=== PATIENT | female | born 1970 | race Caucasian/White ===

== ENCOUNTER 2017-04-01 07:40 | Emergency (ER) | payer OTHER ==
[~2017-04-01] VITALS: Ht 162.6 cm; Wt 93.0 kg
[2017-04-01 08:07] LABS: URINE BILIRUBIN NEGATIVE (Negative); URINE BLOOD TRACE (Negative); URINE CLARITY SL CLOUDY; URINE COLOR YELLOW; URINE GLUCOSE-RANDOM NEGATIVE (Negative); URINE KETONES NEGATIVE (Negative); URINE NITRITE-REFLEX NEGATIVE (Negative); URINE PROTEIN NEGATIVE (Negative)
[2017-04-01 08:08] LABS: URINE LEUKOCYTES-REFLEX 2+ (Negative)
[2017-04-01 08:10] LABS: CASTS None Seen /LPF (None Seen); SQUAMOUS >10 Many /LPF (0-3); URINE RBC 0-2 Rare /HPF (0-2); URINE WBC-REFLEX 0-5 Rare /HPF (0-5)
[2017-04-01 08:11] LABS: AMORPHOUS URATES Moderate /LPF (None Seen)
[2017-04-01 08:18] LABS: NUCLEATED RBCS 0 /100WBC
[2017-04-01 08:20] LABS: RBC 4.49 mil/uL (4.20-5.00)
[2017-04-01 08:23] LABS: ANION GAP 9 mmol/L (7-16); BUN 14 mg/dL (7-18); CALCIUM 8.7 mg/dL (8.5-10.1); CHLORIDE 103 mmol/L (98-107); CO2 26 mmol/L (21-32); GLUCOSE 103 mg/dL (70-99); POTASSIUM 3.4 mmol/L (3.5-5.1); SODIUM 138 mmol/L (136-145)
[2017-04-01 08:24] LABS: ABSOLUTE LYMPHOCYTES 2.2 thou/uL (0.8-5.3); ABSOLUTE MONOCYTES 0.8 thou/uL (0.0-1.2); BASOPHILS 0.4 %; EOSINOPHILS 0.3 %; HEMATOCRIT 41.1 % (37.0-47.0); HEMOGLOBIN 14.3 gm/dL (12.0-15.0); LYMPHOCYTES 19.6 %; MCH 31.8 pg (26.0-34.0); MCHC 34.7 g/dL (28.0-37.0); MCV 91.5 fL (80.0-100.0); MONOCYTES 7.5 %; MPV 7.8 fl. (7.2-11.1); PLATELET COUNT* 283 thou/uL (150-400); POLYS 72.2 %; RDW-CV 12.9 % (10.5-14.5); WBC 11.1 thou/uL (4.0-11.0)
[2017-04-01 08:30] LABS: ALKALINE PHOSPHATASE 80 U/L (46-116); LIPASE 185 U/L (73-393); SGOT 18 U/L (15-37); SGPT 20 U/L (30-65); TOTAL BILIRUBIN 0.5 mg/dL (<0.1-1.0); TOTAL PROTEIN 8.6 g/dL (6.4-8.2); TROPONIN-I LEVEL <0.06 ng/mL (<0.06)
[2017-04-01] MEDS ORDERED: BACTRIM DS TAB1 EACH PO (09:27)
[2017-04-01] MEDS ORDERED: ZOFRAN ODT4 MG PO (09:27)
[2017-04-01] MEDS ORDERED: NORCO 5-325 TA1 EACH PO (09:27)
[2017-04-01 09:51] VITALS: BP 120/75
--- NOTE | 2017-04-02 15:46 | EKG ---
[place] [address] ELECTROCARDIOGRAM REPORT Name: ABUNDIO HAYDEN Room: 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
== END 2017-04-01 09:51 | disposition home or self-care (01) ==
LOC: M.ERS 07:40
PROVIDERS: Emergency Medicine Emergency Medical Services
DX: R10.84 Generalized abdominal pain (principal); N39.0 Urinary tract infection, site not specified